=== PATIENT | male | born 1955 | race Caucasian/White ===

== ENCOUNTER → 2020-05-22 | Outpatient (CLI) | payer MEDICAID, OTHER ==
[~2020-05-22] MED LIST: ALPR1TAB6 PO; CITA40TA5 PO; HYDR12.575 PO; LISI10TA16 PO; LISI1TAB23 PO; METF500T16 PO
== END ==
LOC: LAB 10:28
PROVIDERS: ATTEND Orthopaedic Surgery
DX: Z01.812 Encounter for preprocedural laboratory examination (principal); M25.562 Pain in left knee; Z20.822 Contact with and (suspected) exposure to COVID-19
CPT/HCPCS: U0003

== ENCOUNTER → 2020-05-26 | Day surgery (SDC) | payer OTHER ==
--- NOTE | 2020-05-25 13:06 | PDOC1 ---
History and Physical Date of Admission Date of Admission 05/26/20 Identification/Chief Complaint Chief Complaint Left knee pain Source Source: Chart review, Patient History of Present Illness History of Present Illness 64-year-old with left knee pain. 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 He describes a fall into his kneecap about 4 months ago while picking up a load of scrap steel. Following this, his knee was swollen and painful. He notices medial pain with instability and giving out in his knee that has especially progressed over the last few weeks. His knee pain has prevented him from working and is worse doing down stairs. So far, he has been wearing a knee sleeve which "helps a little bit but not a whole lot". He also tried naproxen and acetaminophen with a cortisone injection a couple months ago by his PCP which was unhelpful. No history of physical therapy. Past Medical History Cardiovascular: HTN GI: GERD Endocrine: Diabetes Past Surgical History Past Surgical History: Appendectomy, Tonsillectomy Family History Family History Mother: alive, alive and well Father: 86 yrs, hypertension, diabetes 2 brother(s) , 1 sister(s) - healthy. 1daughter(s) - healthy. Family History: Diabetes, Hypertension Social History Smoke: <1 pack per day ALCOHOL: occassional Current Medications Current Medications Current Medications Fentanyl Citrate (Fentanyl 2ml Vial) 25 mcg PRN Q5MIN PRN IVP MILD PAIN 1-3; Start 05/26/20 at 06:00; Stop 05/27/20 at 05:59 Fentanyl Citrate (Fentanyl 2ml Vial) 50 mcg PRN Q5MIN PRN IVP MODERATE PAIN 4- 6; Start 05/26/20 at 06:00; Stop 05/27/20 at 05:59 Morphine Sulfate (Morphine Sulfate) 1 mg PRN Q10MIN PRN IVP SEVERE PAIN 7-10; Start 05/26/20 at 06:00; Stop 05/27/20 at 05:59 Ringer's Solution 1,000 ml @ 30 mls/hr Q24H IV ; Start 05/26/20 at 06:00; Stop 05/26/20 at 17:59 Hydromorphone HCl (Dilaudid) 0.5 mg PRN Q10MIN PRN IVP SEVERE PAIN 7-10, 2nd CHOICE; Start 05/26/20 at 06:00; Stop 05/27/20 at 05:59 Prochlorperazine Edisylate (Compazine) 5 mg PACU PRN PRN IVP NAUSEA, MRX1; Start 05/26/20 at 06:00; Stop 05/27/20 at 05:59 Cefazolin Sodium/ Dextrose 50 ml @ 100 mls/hr 1X PREOP PRN IV PRIOR TO PROCEDURE; Start 05/26/20 at 06:00; Stop 05/26/20 at 18:00 Active Scripts Active Reported Lisinopril 10 Mg Tablet 10 Mg PO DAILY Hydrochlorothiazide Capsule (Hydrochlorothiazide) 12.5 Mg Capsule 1 Cap PO DAILY Alprazolam 1 Mg Tablet 1 Tab PO BID Allergies Allergies: Coded Allergies: No Known Drug Allergies (Unverified , 05/20/20) ROS Review of System OPHTHALMOLOGY Blurred vision none. Double vision denies. Change in vision none. ENT Hearing loss none. Change in voice denies. Rhinorrhea none. CARDIOLOGY Palpitations none. Shortness of breath denies. Chest pain denies. CONSTITUTIONAL Fever denies. Chills denies. Weight gain denies. Weakness none. weight loss denies. Fatigue none. GASTROENTEROLOGY Diarrhea denies. Vomiting none. Dysphagia none. UROLOGY Voiding normally yes. Hematuria none. MUSCULOSKELETAL Chronic back or neck pain denies. Swelling of the feet, hands, ankles and /or legs denies. Joint pain admits. Tingling/numbness no. DERMATOLOGY Rash denies. Lumps none. NEUROLOGY Dizziness/lightheadedness denies. Double vision, temporary blindness d enies. Tingling/numbness none. PSYCHOLOGY Change in mood or personality denies. Memory loss none. ENDOCRINOLOGY Obesity denies. Fatigue none. Weight loss none. HEMATOLOGY/LYMPH Hepatitis denies. Enlarged lymph nodes denies. Physical Exam General: Alert, Cooperative HEENT: Atraumatic Heart: RRR Abdomen: Soft Extremities: Other (The LEFT knee shows normal alignment, no masses and trace effusion. There is tenderness at the medial joint line and a positive medial Ant's test. The lateral joint line shows no tenderness. Range of motion is 0-135 degrees. There is minimal patellofemoral crepitus. Ant's test is positive. There is medial joint line pain with deep flexion and especially with rotation of the tibia. The knee is stable to varus and valgus stress without subluxation or laxity. The ACL feels intact on Linda testing. Muscle strength is normal (5/5) for quadriceps and hamstrings, and muscle tone is normal. The skin is normal with no scars, rashes, lesions or ulcers. Light touch sensation is intact. No edema and no varicosities. Dorsalis pedis pulse is intact and capillary refill is normal . ) Skin: No breakdown, No significant lesion Neuro: Normal speech, Sensation intact Images Images Report reviewed images independently reviewed MRI left knee from [facility] 05/05/2020. Posterior horn medial meniscus tear on series 3 coronal proton-density fat- saturated image 6 of 24. Borderline to have a subchondral fracture, series 6 sagittal STIR images, image 20 of 25. NAME: TESSA LECHUGA : 1955 ACC: [id number] MRI LEFT KNEE WITHOUT CONTRAST: TECHNIQUE: 0.3T MR: Multiplanar/multisequence noncontrast knee protocol. INDICATION: Status post fall 4 months ago. Knee pain. COMPARISON: Radiographs performed 04/23/2020 FINDINGS: JOINT CAPSULE: A moderate joint effusion is present. MEDIAL COMPARTMENT: There is horizontal signal intensity in the posterior horn which may extend from the periphery of the medial meniscus towards the free edge and may contact the inferior articular surface. There is possible vertical tear near the posterior meniscal root contacting the inferior articular surface and extending towards the superior articular surface. There is ill-defined marrow edema-like changes involving the posterior medial femoral condyle with a possible subchondral fracture involving the posterior medial femoral condyle. LATERAL COMPARTMENT: There is horizontal signal intensity in the posterior horn, body and anterior horn which extends towards the inferior articular surface in the region the posterior meniscal root. Lateral femoral condylar and tibial plateau hyaline cartilage and bone marrow are within normal limits. PATELLOFEMORAL JOINT: There is cartilage irregularity along the medial facet of the patella. Mild thinning of the trochlear cartilage is noted along the anterior medial femur. There is a traction osteophyte along the anterior superior patella. The medial and lateral retinacular complex are intact. LIGAMENTS: The anterior cruciate, posterior cruciate, medial collateral and lateral collateral ligament complex exhibit normal signal and morphology. The extensor mechanism exhibits normal signal and morphology. SOFT TISSUE: Visualized musculature exhibits normal signal intensity and morphology. No soft tissue mass, subcutaneous edema or other signal abnormality is present. IMPRESSION: 1. Prominent bone marrow edema involving the posterior distal medial femur with a possible subchondral fracture involving the medial femoral condyle. 2. Possible complex horizontal tear of the posterior horn of the medial meniscus which likely contacts the inferior articular surface with an equivocal vertical tear near the posterior meniscal root. 3. Mild degenerative changes of the patellofemoral compartment with associated traction osteophyte along the anterior superior patella. 4. Moderate-sized joint effusion consistent with acute and/or chronic repetitive trauma. Electronically Signed By: TALIB MILLER MD on 2020-05-05 12:05:17 Report reviewed and images independently reviewed of the plain x-rays of the left knee 04/23/2020 showing minimal degenerative change, no significant malalignment, minimal osteophytic lipping. NAME: TESSA LECHUGA : 1955 ACC: [id number] KNEE-LEFT: TECHNIQUE: 2 weightbearing views. INDICATION: Left knee pain particularly along the medial side. COMPARISON: None available. FINDINGS: BONE/JOINTS: The visualized femur, tibia, fibula and patella appear normal without fracture, periosteal reaction or osteolytic/osteoblastic lesion. Mild medial compartment narrowing and osteophytes present. The lateral joint compartment appears normal. Mild patellofemoral narrowing and osteophytes present. SOFT TISSUE/OTHER: No soft tissue abnormality or joint effusion present. 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 Electronically Signed By: GABRIELE NAIDU MD on 2020-04-23 12:44:20. VTE Prophylaxis Ordered VTE Prophylaxis Devices: Yes VTE Pharmacological Prophylaxi: Yes Assessment/Plan Assessment/Plan Complex tear of medial meniscus of left knee as current injury, initial encounter - S83.232A His MRI shows a medial meniscus tear. We reviewed his report with previous x- rays together and discussed the natural history of the condition as well as the risks, benefits, and alternatives to treatment. Given his failure of nonoperative measures with continued severe pain, my recommendation is surgery. Plan for left knee arthroscopy with medial meniscectomy. We discussed potential risks of arthroscopic surgery, including risks of bleeding, infection, progressive arthritis, blood clots, or other potential surgical or anesthetic co mplications. We also discussed postoperative treatment and expectations including progression of arthritis following knee arthroscopy. All of his questions were answered and he desires to proceed with surgery Justifications for Admission Other Justification HERSON QUIROZ MD May 25, 2020 13:06
[~2020-05-26] VITALS: Ht 177.8 cm; Wt 112.9 kg
[~2020-05-26] MED LIST changes: +BUPIVACAINE-EPI 0.25% 30 ML VIAL KIT. ONE; +DEXAMETHASONE SOD PHOS 4 MG/ML VIAL ONE; +EPINEPHrine VIAL 30 MG/30 ML VIAL ONE; +GLYCOPYRROLATE 1 MG/5 ML VIAL. ONE; +HYDROcodone/APAP 7.5/325MG 1 TAB TABLET PO PRN; +HYDROmorphone 2 MG/ML VIAL IVP PRN; +IV RINGERS,LACTATED 1000ML 1,000 ML IV SCH; +LIDOCAINE 2% PF 5 ML VIAL. ONE; +MIDAZOLAM HCL/PF 2 MG/2 ML VIAL. ONE; +MORPHINE SULFATE 2 MG/ML VIAL. IVP PRN; +ONDANSETRON PF 4 MG/2 ML VIAL. ONE; +PROCHLORPERAZINE 10 MG/2 ML VIAL. IVP PRN; +PROPOFOL 10 MG/ML (20ML) VIAL. IV ONE; +SEVOFLURANE 31 TO 60 MINUTES. IH ONE; +fentaNYL PF VIAL 100 MCG/2 ML VIAL IVP PRN; +fentaNYL PF VIAL 100 MCG/2 ML VIAL ONE
--- NOTE | 2020-05-26 16:27 | PDOC4 ---
Operative Note Operative Note Date of Procedure: May 26, 2020 Preoperative Diagnosis: left knee medial meniscus tear Postoperative Diagnosis: complex tear of medial meniscus, current injury, left knee, initial encounter S83.232A Procedures Performed: left knee arthroscopy, surgical, with meniscectomy, MEDIAL, including meniscal shaving, including debridement/shaving of articular cartilage (chondroplasty) CPT 75815 Surgeon: Herson Arias MD Pcat Instructor: Rachelle CANADA Anesthesia: General Estimated Blood Loss: 10 mL Specimens: none Drains: none Complications: none Tourniquet time: 26 minutes at 300 mm Hg Indications for Procedure: The patient is a 64-year-old with left knee pain, unrelieved with nonoperative treatment. Exam and MRI are consistent with a meniscus tear. We talked about the risks and benefits of proceeding with an arthroscopic procedure. We talked about potential risks of ongoing pain, progressive arthritis, bleeding, infection, blood clots, or other potential surgical or anesthetic complications. All of the patient's questions about surgery were answered and they desired to proceed. Written consent was obtained. Description of Operation: The patient was identified in the preoperative holding area. The correct left knee was marked by me. The patient was taken to the operating room, where a general anesthetic was used. Preoperative antibiotics were given intravenously. A time-out procedure was performed. A tourniquet was placed on the upper thigh. Local anesthetic 20 mL of 0.25% bupivacaine was injected using sterile technique into the knee joint. The limb was prepared circumferentially with ChloraPrep solution and sterile waterproof arthroscopy drapes were applied. The limb was exsanguinated with an Esmarch bandage and the tourniquet was inflated. Lateral and medial arthroscopy portals were established. The medial meniscus showed a complex unrepairable tear with unstable flaps. A meniscectomy was performed with basket forceps and the motorized shaver back to a smooth stable base, and the resection tapered into the middle one-third of the meniscus. The complex tear appeared to have started as a radial root tear and progressed to a more complex pattern. 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 The lateral tibiofemoral joint showed a normal lateral meniscus, so no lateral meniscectomy was required.The lateral articular surfaces showed chondromalacia Outerbridge grade I, so no chondroplasty was required. The patellofemoral joint showed chondromalacia Outerbridge grade I, so no chondroplasty was required. The suprapatellar pouch, medial and lateral gutters were free of loose bodies. Copious irrigation was used to drain all meniscal and chondral fragments, and the knee was drained of fluid. The portals were closed with #3-0 Prolene interrupted sutures. Additional local anesthetic, 30 mL of 0.25% bupivacaine with epinephrine was injected. A bulky sterile dressing was ap plied and the tourniquet was released. Needle and sponge counts were correct and there were no apparent complications. HERSON ARIAS MD May 26, 2020 16:27
[2020-05-26 16:48] VITALS: BP 124/69
== END | disposition home or self-care (01) ==
LOC: SURG 12:49
PROVIDERS: ATTEND Orthopaedic Surgery
DX: S83.232A Complex tear of medial meniscus, current injury, left knee, initial encounter (principal); I10 Essential (primary) hypertension; F41.9 Anxiety disorder, unspecified; Z87.891 Personal history of nicotine dependence; Z79.899 Other long term (current) drug therapy; Z98.890 Other specified postprocedural states; X58.XXXA Exposure to other specified factors, initial encounter; Y93.89 Activity, other specified; Y92.89 Other specified places as the place of occurrence of the external cause; Y99.8 Other external cause status
CPT/HCPCS: 29881; 97110; 97116; 97162; J0171; J0690; J1100; J2250; J2405; J2704; J3010; J3490